=== PATIENT | female | born 1980 | race Caucasian/White ===

== ENCOUNTER 2025-07-28 01:38 | Emergency (ER) | payer SELFPAY ==
[~2025-07-28] VITALS: Ht 154.9 cm; Wt 70.5 kg
[2025-07-28 02:01] VITALS: O2SAT 98
[2025-07-28 02:41] VITALS: BP 117/90; PULSE 102; RESP 18; TEMP 36.8; O2SAT 99
== END 2025-07-28 05:27 | disposition left against medical advice (07) ==
LOC: ER 01:38
DX: M79.602 Pain in left arm (principal); Z53.21 Procedure and treatment not carried out due to patient leaving prior to being seen by health care provider